=== PATIENT | male | born 1985 | race African-American/Black ===

== ENCOUNTER 2019-05-01 12:25 | Emergency (ER) | payer OTHER ==
[~2019-05-01] VITALS: Ht 172.7 cm; Wt 101.8 kg
[2019-05-01 12:38] VITALS: BP 151/93
== END 2019-05-01 14:00 | disposition home or self-care (01) ==
LOC: ED 13:50
DX: S50.02XA Contusion of left elbow, initial encounter (principal); S90.32XA Contusion of left foot, initial encounter; S09.90XA Unspecified injury of head, initial encounter; V59.49XA Driver of pick-up truck or van injured in collision with other motor vehicles in traffic accident, initial encounter; Y93.89 Activity, other specified; Y92.410 Unspecified street and highway as the place of occurrence of the external cause; Y99.8 Other external cause status
CPT/HCPCS: 70450; 99284